=== PATIENT | female | born 1990 | race Caucasian/White ===

== ENCOUNTER 2023-10-20 16:36 | Day surgery (SDC) | payer MEDICAID ==
[~2023-10-20] VITALS: Ht 165.1 cm; Wt 80.9 kg
[2023-10-20] MEDS ORDERED: TYLENOL 500MG500 MG PO (16:54)
[2023-10-20] MEDS ORDERED: TUMS500 MG (16:54)
[2023-10-20] MEDS ORDERED: PEPCID COMPLETE1 CTB PO (16:55)
[2023-10-20 17:00] VITALS: BP 119/78; PULSE 88; TEMP 98.4
--- NOTE | 2023-10-20 17:00 | NUR ---
Patient to room 329, ambulated independently. A&Ox4. VSS. with the patient. Nurse oriented the patient to location, room and call light. Call light within reach
[2023-10-20 17:22] LABS: BASO % 0.4 % (0.0-2.0); EOS % 0.1 % (0.0-4.0); GRAN # 8.4 K/mm3 (1.4-6.5); HEMATOCRIT 42.8 % (37.0-47.0); HEMOGLOBIN 14.8 g/dl (12.5-16.0); LYMPH # 1.5 K/mm3 (1.2-3.4); LYMPH % 14.3 % (20.0-51.0); MEAN CELL VOLUME 88 fl (80.0-100.0); MEAN CORPUSCULAR HEMOGLOBIN 31 pg (27-31); MEAN CORPUSCULAR HGB CONC 35 g/dl (33.0-37.0); MEAN PLATELET VOLUME 9.8 fl (7.4-10.4); MONO # 0.6 K/mm3 (0.1-0.6); MONO % 5.8 % (1.7-9.3); PLATELET COUNT 372 K/mm3 (130-400); RED BLOOD COUNT 4.84 M/mm3 (4.10-5.30); REDCELL DISTRIBUTION WIDTH-CV 12.4 % (11.5-14.5)
[2023-10-20] MEDS ORDERED: NS 1,000 ML IV SCH (17:30)
[2023-10-20] MEDS ORDERED: cefTRIAXone 2 G in Water For Injection,Sterile 20 ML IV ONE (17:30)
[2023-10-20] MEDS ORDERED: Morphine 4 MG/ML VIAL IV PRN (17:30)
[2023-10-20] MEDS ORDERED: Ondansetron 4 MG/2 ML VIAL IV PRN (17:30)
[2023-10-20 17:45] LABS: ALBUMIN 4.6 gm/dL (3.5-5.0); BILIRUBIN,TOTAL 0.7 mg/dL (0.2-1.2); CALCIUM 9.9 mg/dL (8.4-10.2); CREATININE, serum 0.94 mg/dL (0.57-1.11); POTASSIUM 3.5 mmol/L (3.5-4.5); TOTAL PROTEIN 7.9 gm/dL (6.2-8.1)
--- NOTE | 2023-10-20 19:12 | NUR ---
BEDSIDE REPORT RECEIVED FROM RORO RN. PATIENT SITTING UP IN BED AWAITING DINNER. PATIENT DENIES NEEDS OR CONCERNS AT THIS TIME. WILL MONITOR.
[2023-10-20 19:56] VITALS: BP 126/74; PULSE 105; TEMP 98.7
[2023-10-20 20:51] VITALS: BP_SYST 126
[2023-10-20 23:49] VITALS: BP 143/79; PULSE 84; TEMP 98.3
[2023-10-21] VITALS (14 sets, daily range): BP systolic 116–144; BP diastolic 70–85; PULSE 86–104; TEMP 98–98.7
--- NOTE | 2023-10-21 03:53 | NUR ---
PATIENT SITTING UP IN BED WATCHING TV. PATIENT HAS BEEN NPO SINCE MIDNIGHT. PATIENT DENIES PAIN OR DISCOMFORT AT THIS TIME. CALL LIGHT WITHIN REACH. WILL MONITOR.
[2023-10-21] MEDS ORDERED: Indocyanine Green 12.5 MG in Water For Injection,Sterile 2.5 ML IV ONE (04:00)
--- NOTE | 2023-10-21 06:12 | NUR ---
PATIENT DID NOT HAVE TEST RESULTS. THIS NURSE CALLED DR CALDERON TO OBTAIN ORDER FOR HCG URINE SAMPLE. SAMPLE COLLECTED.
--- NOTE | 2023-10-21 06:18 | NUR ---
PRE-OP CHECKLIST COMPLETE. HCG URINE SAMPLE IS PENDING.
--- NOTE | 2023-10-21 07:28 | NUR ---
PT TO SURGERY AT THIS TIME. CONSENT ON CHART. PRE-OP CHECKLIST COMPLETE. ICG GIVEN PER REPORT FROM SURGICAL DENTAL ASSISTANT.
--- NOTE | 2023-10-21 07:29 | NUR ---
HCG RESULTED NEGATIVE.
[2023-10-21] MEDS ORDERED: fentaNYL 50 MCG/ML 2 ML VIAL IV PRN (07:45)
[2023-10-21] MEDS ORDERED: Morphine 4 MG/ML VIAL IV PRN (07:45)
[2023-10-21] MEDS ORDERED: Rocuronium 50 MG/5 ML Multi-Dose VIAL ONE (07:45)
[2023-10-21] MEDS ORDERED: HYDROmorphone 2 MG/1 ML VIAL IV PRN (07:45)
[2023-10-21] MEDS ORDERED: droPERidol 2.5 MG/ML 2 ML VIAL IV PRN (07:45)
[2023-10-21] MEDS ORDERED: fentaNYL 50 MCG/ML 5 ML VIAL ONE (07:45)
[2023-10-21] MEDS ORDERED: Lidocaine PF 2% (20 MG/ML) 5 ML VIAL ONE (07:45)
[2023-10-21] MEDS ORDERED: Ondansetron 4 MG/2 ML VIAL IV PRN ×2 (07:45→09:15)
[2023-10-21] MEDS ORDERED: Meperidine 50 MG/ML 1 ML VIAL IV PRN (07:45)
[2023-10-21] MEDS ORDERED: LR 1,000 ML IV SCH (07:45)
--- NOTE | 2023-10-21 07:50 | NUR ---
PT TO OR AT THIS TIME WITH MUNIRA NURSE PRACTITIONER HOSPITALIST. VSS, ASSESSMENTS COMPLETE.
[2023-10-21] MEDS ORDERED: dexAMETHasone 10 MG/ML VIAL ONE (08:12)
[2023-10-21] MEDS ORDERED: Ondansetron 4 MG/2 ML VIAL ONE (08:12)
[2023-10-21] MEDS ORDERED: Topical Skin Adhesive 1 EACH (1 ML) TOP ONE (08:16)
[2023-10-21] MEDS ORDERED: Ketorolac 30 MG/ML VIAL ONE (08:36)
[2023-10-21] MEDS ORDERED: Glycopyrrolate 0.2 MG/ML 1 ML VIAL ONE (08:46)
[2023-10-21] MEDS ORDERED: Influenza Virus Vaccine, Quad '23-24 (6 MOS+) 0.5 ML SYRINGE IM SCH (09:00)
[2023-10-21] MEDS ORDERED: NORCO 325 MG-51 TAB PO (09:10)
[2023-10-21] MEDS ORDERED: Acetaminophen 325 MG TAB PO PRN (09:15)
[2023-10-21] MEDS ORDERED: Ibuprofen 600 MG TAB PO PRN (09:15)
[2023-10-21] MEDS ORDERED: HYDROmorphone 2 MG/1 ML VIAL IV ONE (09:30)
[2023-10-21] MEDS ORDERED: Ondansetron 4 MG/2 ML VIAL IV ONE (09:34)
--- NOTE | 2023-10-21 10:02 | NUR ---
PT TO ROOM 329 PER BED WITH REPORT FROM MUNIRA ENRIQUEZ PACU @[id number]. PT IS A/O X4,VSS. LUNGS CTA, LAP SITES X4 PERCUSSION INSTRUMENT TUNER CDI WITH NO DRAINAGE NOTED. PT PROVIDED ICE WATER PER REQUEST. 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 INT TO LFA.
--- NOTE | 2023-10-21 11:26 | NUR ---
DISCHARGE INSTRUCTIONS RECIEVED, PT HAS NOT MET CRITERIA AT THIS TIME. PT NEEDS TO EAT AND VOID. PT IS ALSO WAITING FOR TO PICK HER UP.
--- NOTE | 2023-10-21 13:06 | NUR ---
Data: Patient accepted [employer] Specialist visit offered during [employer] Specialist rounds. Patient had several items of discussion that she wanted to speak about as she was waking up post-surgery. Assessment: Patient had low-level anxiety and enjoyed having the conversation as a distraction. Plan of Care: [employer] Specialist provided a ministry of presence; supportive listening; and ordered Patient's meal when RN told Patient that she was on a general diet. Patient thanked [employer] Specialist several times throughout the conversation for "letting me ramble." Chaplains will remain available as needed/requested while Patient is admitted to this hospital.
--- NOTE | 2023-10-21 17:48 | NUR ---
REVIEWED DISCHARGE INSTRUCTIONS WITH PT AND FAMILY. QUESTIONS ANSWERED. PT LEFT UNIT AMBULATORY AFTER MEETING AND EXCEEDING DISCHARGE CRITERIA.
== END 2023-10-21 17:50 | disposition home or self-care (01) ==
LOC: SDCO 16:36 → SURG 16:36 → SDCO 10-21 17:50 → EDSTATUS 10-23 14:29
PROVIDERS: Surgery
DX: K80.12 Calculus of gallbladder with acute and chronic cholecystitis without obstruction (principal)
CPT/HCPCS: OP; G0378; J0690; J0696; J1100; J1170; J1885; J2405; J2704; J3010; J7030